=== PATIENT | female | born 1955 | race Caucasian/White ===

== ENCOUNTER → 2023-09-13 | Outpatient (CLI) | payer MEDICARE ==
[2023-09-13 09:30] LABS: BASO # 0.03 K/mm3 (0.02-0.10); EOS # 0.13 K/mm3 (0.04-0.40); EOS % 3.1 % (1.0-5.0); HEMATOCRIT 47.1 % (37.0-47.0); HEMOGLOBIN 14.8 g/dL (12.5-16.0); MEAN CELL VOLUME 91 fl (78-100); MEAN CORPUSCULAR HEMOGLOBIN 29 pg (27-31); MEAN CORPUSCULAR HGB CONC 31 g/dL (33-37); MEAN PLATELET VOLUME 10.7 fl (7.4-10.4); MONO # 0.38 K/mm3 (0.20-0.80); NEU # 2.34 K/mm3 (1.40-6.50); PLATELET COUNT 222 K/mm3 (130-400); RED BLOOD COUNT 5.16 M/mm3 (4.10-5.30); RED CELL DISTRIBUTION WIDTH 12.8 % (11.5-14.5); WHITE BLOOD COUNT 4.2 K/mm3 (4.8-10.8)
[2023-09-13 09:47] LABS: ALBUMIN 4.7 g/dL (3.4-4.8)
[2023-09-13 09:49] LABS: CALCIUM 9.6 mg/dL (8.3-10.5)
[2023-09-13 09:50] LABS: TOTAL PROTEIN 7.8 g/dL (6.2-8.1)
[2023-09-13 09:52] LABS: TOTAL BILIRUBIN 0.6 mg/dL (0.2-1.2)
== END ==
LOC: LAB 09:17
PROVIDERS: Nurse Practitioner
DX: Z00.00 Encounter for general adult medical examination without abnormal findings (principal); G47.00 Insomnia, unspecified; M25.511 Pain in right shoulder; R03.0 Elevated blood-pressure reading, without diagnosis of hypertension

== ENCOUNTER → 2023-12-12 | Outpatient (CLI) | payer MEDICARE ==
[2023-12-12 14:10] LABS: BASO # 0.03 K/mm3 (0.02-0.10); EOS # 0.15 K/mm3 (0.04-0.40); EOS % 2.8 % (1.0-5.0); HEMATOCRIT 43.4 % (37.0-47.0); LYMPH# 1.33 K/mm3 (1.50-4.00); MEAN CELL VOLUME 90 fl (78-100); MEAN CORPUSCULAR HEMOGLOBIN 29 pg (27-31); MEAN CORPUSCULAR HGB CONC 32 g/dL (33-37); MEAN PLATELET VOLUME 10.9 fl (7.4-10.4); MONO # 0.49 K/mm3 (0.20-0.80); NEU # 3.38 K/mm3 (1.40-6.50); PLATELET COUNT 187 K/mm3 (130-400); RED BLOOD COUNT 4.85 M/mm3 (4.10-5.30); WHITE BLOOD COUNT 5.4 K/mm3 (4.8-10.8)
[2023-12-12 14:22] LABS: ALBUMIN 4.7 g/dL (3.4-4.8)
[2023-12-12 14:23] LABS: CALCIUM 9.8 mg/dL (8.3-10.5)
[2023-12-12 14:24] LABS: TOTAL PROTEIN 7.5 g/dL (6.2-8.1)
[2023-12-12 14:25] LABS: URINE APPEARANCE CLEAR (CLEAR); URINE COLOR YELLOW (YELLOW)
[2023-12-12 14:26] LABS: PROTHROMBIN TIME 10.1 SECONDS (9.0-12.0); TOTAL BILIRUBIN 0.33 mg/dL (0.2-1.2)
[2023-12-12 14:27] LABS: URINE BILIRUBIN NEGATIVE (NEGATIVE); URINE BLOOD NEGATIVE (NEGATIVE); URINE GLUCOSE NEGATIVE (NEGATIVE); URINE KETONE NEGATIVE (NEGATIVE); URINE LEUKOCYTE ESTERASE 1+ (NEGATIVE); URINE NITRATE NEGATIVE (NEGATIVE); URINE PROTEIN(semi-quant) NEGATIVE (NEGATIVE)
== END ==
LOC: LAB 13:56
PROVIDERS: Nurse Practitioner
DX: Z01.818 Encounter for other preprocedural examination (principal)

== ENCOUNTER 2024-01-01 07:52 | Outpatient (RCR) | payer MEDICARE | END 2024-01-10 | disposition home or self-care (01) | LOC: PT | DX: M25.511 Pain in right shoulder (principal); Z96.611 Presence of right artificial shoulder joint ==

== ENCOUNTER 2024-05-28 09:20 | Emergency (ER) | payer MEDICARE ==
[~2024-05-28] VITALS: Ht 165.1 cm; Wt 66.3 kg
[2024-05-28] MEDS ORDERED: LISINOPRIL20 MG PO (09:50)
[2024-05-28] MEDS ORDERED: Ketorolac 30 MG/ML VIAL IM ONE (10:00)
[2024-05-28] MEDS ORDERED: TRIAMCINOLONE A15 G4 TP (11:21)
[2024-05-28 11:34] VITALS: BP 141/90
== END 2024-05-28 11:30 | disposition home or self-care (01) ==
LOC: ED 09:20
DX: S01.111A Laceration without foreign body of right eyelid and periocular area, initial encounter (principal); S00.81XA Abrasion of other part of head, initial encounter; W10.9XXA Fall (on) (from) unspecified stairs and steps, initial encounter; Y93.01 Activity, walking, marching and hiking
CPT/HCPCS: J1885

== ENCOUNTER → 2024-09-15 | Outpatient (CLI) | payer MEDICARE ==
[~2024-09-15] MED LIST: LISINOPRIL20 MG PO; TRIAMCINOLONE A15 G4 TP
== END ==
LOC: MAMMO 08:08
DX: Z12.31 Encounter for screening mammogram for malignant neoplasm of breast (principal)